=== PATIENT | female | born 2000 | race American Indian/Alaskan Native ===

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

== ENCOUNTER 2018-01-10 10:26 | Inpatient (IN) | payer MEDICAID, OTHER ==
[2018-01-10] MEDS ORDERED: ePHEDrine SULFATE IV PRN (11:40)
[2018-01-10] MEDS ORDERED: XYLOCAINE 2% INFILTRATI ONE (11:40)
[2018-01-10] MEDS ORDERED: BRETHINE SUB-Q PRN (11:40)
[2018-01-10] MEDS ORDERED: SUBLIMAZE IV PRN (11:40)
[2018-01-10] MEDS ORDERED: POLYCILLIN/NS 2 GM/100 ML 2 GM/100 ML BAG IV ONE (11:40)
--- NOTE | 2018-01-10 11:48 | History and Physical Report ---
History of Present Illness Date of examination: 01/10/18 (Walk-in Active labor No PNC) Date of admission: 01/10/18 11:24 Chief complaint: labor pains and vaginal bleeding that started this morning History of present illness: @ 37 weeks by pt's EDC 01-31-18 given to her @ the [facility] office Pt has not had any care with this Pt denies any smoking, drinking, drug use Pt did have PP PreE in 2016 ( she was a pt of [facility] with that ) Past History - Obstetrical History Expected Date of Delivery: 01/31/18 (pt was given EDC by [facility] nurse) Actual Gestation: 37 Week(s) 0 Day(s) : 2 Para: 1 Number of Living Children: 1 Medications and Allergies Allergies Allergy/AdvReac Type Severity Reaction Status Date / Time No Known Allergies Allergy Verified 03/08/16 06:52 Home Medications Medication Instructions Recorded Confirmed Last Taken Type Pnv,Calcium 72/Iron/Folic Acid 1 tab PO DAILY 06/03/16 06/06/16 2 Days Ago History [Pnv Plus Multivit Tab] ~06/01/16 1 tab Active Meds: Active Medications Ephedrine Sulfate (Ephedrine Sulfate) 10 mg IV Q2M PRN PRN Reason: Hypotension Fentanyl (Sublimaze) 100 mcg IV Q2H PRN PRN Reason: Labor Pain Ampicillin Sodium (Ampicillin/Ns 1 Gm/50 Ml) 1 gm in 50 mls @ 100 mls/hr IV Q4HR JOSÉ ANTONIO; Protocol Ampicillin Sodium (Polycillin/Ns 2 Gm/100 Ml) 2 gm in 100 mls @ 100 mls/hr IV ONCE ONE; Protocol Stop: 01/10/18 12:39 - Vital Signs Vital signs: Vital Signs Pulse BP 75 129/81 01/10/18 10:57 01/10/18 10:57 Temp Pulse Resp BP Pulse Ox 75 129/81 01/10/18 10:57 01/10/18 10:57 - Physical Exam Breasts: Positive: deferred Cardiovascular: Regular rate, Normal S1, Normal S2 Abdomen: Positive: normal appearance, soft, normal bowel sounds. Negative: distention, tenderness Genitourinary (Female): Positive: normal external genitalia Vulva: both: normal Vagina: Positive: normal moisture. Negative: discharge Cervix: Negative: lesion, discharge Uterus: Positive: normal size, normal contour Adnexa: both: normal Anus/Rectum: Positive: normal perianal skin, heme negative. Negative: rectal mass, hemorrhoids Extremities: Positive: normal Deep Tendon Reflex Grade: Normal +2 - Obstetrical Uterine Contraction Monitor Mode: External Cervical Dilatation: 7.5 Cervical Effacement Percentage: 90 (BBOW) station: -2 Uterine Contraction Pattern: Regular Uterine Tone Measurement Phase: Resting Uterine Contraction Intensity: Moderate Results All other labs normal. Assessment and Plan - Patient Problems (1) Insufficient care in third trimester Onset Date: ~01/10/18 Current Visit: Yes Status: Acute Plan to address problem: 17yo @ 37 weeks by her dates. labs ordered. aware of pt 's admission. Ampicillin ordered for unknown GBS. Anticipate delivery.
[2018-01-10] MEDS ORDERED: LACTATED RINGERS 1,000 ML IV SCH (12:00)
[2018-01-10] MEDS ORDERED: PITOCin/NS 20 UNIT/1000ML DRIP 20 UNITS/1,000 ML BAG IV SCH (12:00)
[2018-01-10 12:31] LABS: Basophils % (Auto) 0.3 % (0.0-1.8); Eosinophils % (Auto) 0.3 % (0.0-4.3); Hematocrit 24.5 % (30.3-42.9); Hemoglobin 7.9 gm/dl (10.1-14.3); Lymphocytes # (Auto) 1.5 K/mm3 (1.2-5.4); Lymphocytes % (Auto) 18.1 % (13.4-35.0); Mean Corpuscular HGB Conc 32 % (30-34); Monocytes # (Auto) 0.5 K/mm3 (0.0-0.8); Monocytes % (Auto) 6.3 % (0.0-7.3); Platelet Count 260 K/mm3 (140-440); Red Blood Count 3.67 M/mm3 (3.65-5.03); Red Cell Distribution Width 19.5 % (13.2-15.2)
[2018-01-10 12:32] LABS: Bilirubin,Urine NEG (Negative); Blood,Urine NEG (Negative); Color,Urine Yellow (Yellow); Mucus,Urine 3+ /HPF
[2018-01-10 12:34] LABS: Mean Corpuscular Hemoglobin 22 pg (28-32); Mean Corpuscular Volume 67 fl (79-97)
[2018-01-10 12:38] LABS: Amphetamine Screen,Urine PRESUMPTIVE NEGATIVE; Benzodiazepines Screen,Urine PRESUMPTIVE NEGATIVE; Cocaine Screen,Urine PRESUMPTIVE NEGATIVE; Methadone Screen,Urine PRESUMPTIVE NEGATIVE; Opiate Screen,Urine PRESUMPTIVE NEGATIVE
[2018-01-10 12:50] LABS: Cannabinoid Screen,Urine PRESUMPTIVE POSITIVE
[2018-01-10] MEDS ORDERED: LANSINOH TP PRN (13:03)
[2018-01-10] MEDS ORDERED: TUCKS PAD TP PRN (13:03)
[2018-01-10] MEDS ORDERED: TYLENOL PO PRN (13:03)
[2018-01-10] MEDS ORDERED: MILK OF MAGNESIA PO PRN (13:03)
[2018-01-10] MEDS ORDERED: PHENERGAN PO PRN (13:03)
[2018-01-10] MEDS ORDERED: ZOFRAN IV PRN (13:03)
[2018-01-10] MEDS ORDERED: BENADRYL PO PRN (13:03)
--- NOTE | 2018-01-10 13:17 | Procedure Note ---
OB Delivery Note - Delivery Date of Delivery: 01/10/18 Jacquard Loom Carpet Weaver: BETO THIBODEAUX Estimated blood loss: 300cc - Vaginal Delivery presentation: vertex Delivery position: OA Intrapartum events: no care Delivery induction: none Delivery augmentation: rupture of membranes Delivery monitor: external FHT, external uterine Route of delivery: Delivery placenta: spontaneous Delivery cord: nuchal cord, 3 umbilical vessels Episiotomy: none Delivery laceration: none Anesthesia: intravenous Delivery comments: NICU RT present for delivery No care live born male CAN X 1 delivered through Baby passed to NICU team for assessment. Cord blood obt. Blood type unknown @ time of delivery. Placenta and membrane del complete and intact, 3 vessel cord. To pathology. Pit IVFs. 8 /9, EBL 300, Wgt 5-13. Mom and baby remain LDR stable. PIH labs ordered PP due to elevated BPs noted. Urine 30 of protein - Infant A at 1 minute: 8 at 5 minutes: 9 Infant Gender: Male (wgt 5-13)
[2018-01-10] MEDS: MOTRIN PO SCH ×2 (13:49→21:53)
[2018-01-10] MEDS ORDERED: SODIUM CHLORIDE FLUSH SYRINGE 10 ML IV SCH (14:00)
[2018-01-10] MEDS ORDERED: DULCOLAX PR PRN (14:00)
[2018-01-10 14:19] LABS: Hepatitis C Virus Antibody Non-Reactive (NonReactive)
[2018-01-10 14:46] LABS: Alanine Aminotransferase 6 units/L (7-56); Uric Acid 2.4 mg/dL (3.5-7.6)
[2018-01-10 14:49] LABS: Rubella IgG Antibody Immune (Immune)
[2018-01-10] MEDS ORDERED: AMPICILLIN/NS 1 GM/50 ML 1 GM/50 ML BAG IV SCH (15:42)
[2018-01-10] MEDS: FEOSOL PO SCH (21:53)
[2018-01-10] MEDS: COLACE PO SCH (21:56)
[2018-01-11 00:43] LABS: Hematocrit 21.1 % (30.3-42.9); Hemoglobin 6.5 gm/dl (10.1-14.3)
[2018-01-11] MEDS: MOTRIN PO SCH ×3 (05:59→18:02)
[2018-01-11] MEDS ORDERED: BOOSTRIX IM ONE (06:00)
--- NOTE | 2018-01-11 08:04 | Progress Note ---
Assessment and Plan A; 17y/o day #1 s/p , no care, + THC use. GBS unknown. Intact perineum, lochia scant, fundus firm. H&H 6.5/21.1 (starting H&H 7.9/24.5 upon admission), no s/s anemia. VSSAF, bottle feeding. P: Continue pathway, FE supplementation, anticipate d/c home tomorrow if stable. - Patient Problems (1) Spontaneous vaginal delivery Current Visit: Yes Status: Acute Subjective - Subjective Date of service: 01/11/18 Principal diagnosis: day #1 s/p , no care, existing anemia Patient reports: appetite normal, voiding normally, pain well controlled, ambulating normally, no dizzy ambulation, no nauseated [place]: doing well, bottle feeding Objective - Vital Signs Latest vital signs: Vital Signs Temp Pulse Resp BP BP Pulse Ox 01/11/18 05:59 18 01/11/18 00:30 98.4 F 76 20 111/55 96 01/10/18 21:53 18 01/10/18 20:45 98.7 F 79 18 114/58 97 01/10/18 14:30 98 F 82 20 115/58 98 01/10/18 14:02 90 134/69 01/10/18 13:47 85 141/79 01/10/18 13:32 95 H 140/90 01/10/18 13:17 109 H 142/84 01/10/18 13:02 106 H 150/93 01/10/18 12:47 93 H 144/96 01/10/18 12:34 78 135/87 01/10/18 12:17 77 124/79 01/10/18 12:02 88 128/75 01/10/18 10:57 75 129/81 Intake and Output 01/10/18 01/11/18 01/11/18 23:59 07:59 15:59 Intake Total 240 240 Output Total 1400 Balance -1160 240 Intake: Oral 240 240 Output: Urine 1400 Void 1400 Other: Total, Intake Amount 240 240 Total, Output Amount 400 # Voids Void 1 - Exam Breasts: Present: normal Cardiovascular: Present: Regular rate Lungs: Present: Clear to auscultation, Normal air movement Abdomen: Present: normal appearance, soft Vulva: both: normal Uterus: Present: normal, firm, fundal height at umbilicus Extremities: Present: normal - Labs Labs: Abnormal lab results 01/10/18 01/10/18 01/11/18 Range/Units 11:50 14:06 00:18 Hgb 7.9 L 6.5 L (10.1-14.3) gm/dl Hct 24.5 L 21.1 L (30.3-42.9) % MCV 67 L (79-97) fl MCH 22 L (28-32) pg RDW 19.5 H (13.2-15.2) % Seg Neutrophils % 75.0 H (40.0-70.0) % Creatinine 0.3 L (0.7-1.2) mg/dL Uric Acid 2.4 L (3.5-7.6) mg/dL ALT 6 L (7-56) units/L
--- NOTE | 2018-01-11 08:06 | Ultrasound Report ---
History: No care. Findings: Gestation: Single Position: Cephalic Heart Rate: 138 BPM BPD: 7.9 cm = 31 w 6 d HC: 29.6 cm = 32 w 5 d AC: 32 cm = 35 w 6 d FL: 7.1 cm = 36 w 2 d HC/AC Ratio: 0.9 Cephalic Index: 79.7 Estimated Weight: 2621 grams US Gest. Age = 34 w one d EDC: 02/20/18
[2018-01-11] MEDS: PRENATAL VITAMIN PO SCH (12:16)
[2018-01-11] MEDS: FEOSOL PO SCH ×2 (12:16→21:53)
[2018-01-11] MEDS ORDERED: M-M-R II VACCINE SUB-Q ONE (13:03)
[2018-01-11] MEDS: COLACE PO SCH (21:53)
[2018-01-12] MEDS: MOTRIN PO SCH ×3 (00:15→13:05)
--- NOTE | 2018-01-12 08:52 | Discharge Summary ---
Providers - Providers Date of Admission: 01/10/18 11:24 Date of discharge: 01/12/18 Attending physician: EDITH GALVEZ 01/10/18 Consult to Case Management [CONS] Routine Services Needed at Discharge: Service Superintendent Notified:: piper Phone number called:: [phone] Was contact made?: Yes If yes, spoke with:: piper Time called:: 15:01 Primary care physician: STORE WORKER Hospitalization Delivery: Episiotomy: none Laceration: none Other procedures: none complications: other (anemia patient declined transfusion) Discharge diagnosis: IUP at term delivered baby: male Hospital course: Please see dictated H&P for details. Patient with no care presented to labor and delivery in active labor and delivered a male . course was complicated by anemia with a hematocrit falling to 21.1% the patient was asymptomatic she was offered today blood transfusion but declined. Patient was instructed to call if she has any heavy bleeding due to a low reserve. Anemia precautions and orthostatic precautions were given. Patient hospital course was also noted that she was positive for cannabis. Patient is bottle feeding. Condition at discharge: Fair Disposition: DC-01 TO HOME OR SELFCARE - Discharge Diagnoses (1) Insufficient care in third trimester Status: Acute (2) Marijuana use Status: Acute (3) No care in current Status: Resolved Qualifiers: Trimester: third trimester Qualified Code(s): O09.33 - Supervision of with insufficient care, third trimester (4) Spontaneous vaginal delivery Status: Acute Plan - Discharge Medications Prescriptions: Ferrous Sulfate [Feosol 325 MG tab] 325 mg PO TID #90 tablet Ibuprofen [Motrin 800 MG tab] 800 mg PO Q6H PRN #30 tablet PRN Reason: Pain - Provider Discharge Summary Activity: routine, no sex for 6 weeks Diet: routine Instructions: routine Additional instructions: [] Smoking cessation referral if applicable(refer to patient education folder for contact #) [] Refer to [facility] Booklet Call your doctor immediately for: * Fever > 100.5 * Heavy vaginal bleeding ( >1 pad per hour) * Severe persistent headache * Shortness of breath * Reddened, hot, painful area to leg or breast * Patient given information about office follow-up in 1-2 weeks for anemia and also to call to schedule an appointment for her son's circumcision. - Follow up plan Follow up: PRIMARY CARE, [Primary Care Provider] - 7 Days
[2018-01-12 09:11] VITALS: BP 122/72
[2018-01-12] MEDS: PRENATAL VITAMIN PO SCH (10:55)
[2018-01-12] MEDS: COLACE PO SCH (10:55)
[2018-01-12] MEDS: FEOSOL PO SCH (10:55)
== END 2018-01-12 14:57 | disposition home or self-care (01) | DRG 775 ==
LOC: TRG 10:26 → LD 11:24 → OB 14:40
PROVIDERS: ADMIT Obstetrics & Gynecology; ATTEND Obstetrics & Gynecology
PROC: 10E0XZZ Delivery of Products of Conception, External Approach (ICD-10-PCS; principal; 2018-01-10)
PROC: 3E0234Z Introduction of Serum, Toxoid and Vaccine into Muscle, Percutaneous Approach (ICD-10-PCS; 2018-01-11)
DX: O69.81X0 Labor and delivery complicated by cord around neck, without compression, not applicable or unspecified (principal); O99.324 Drug use complicating childbirth; O90.81 Anemia of the puerperium; D64.9 Anemia, unspecified; F12.90 Cannabis use, unspecified, uncomplicated; O09.33 Supervision of pregnancy with insufficient antenatal care, third trimester; Z3A.37 37 weeks gestation of pregnancy; Z37.0 Single live birth; Z79.899 Other long term (current) drug therapy; Z23 Encounter for immunization
CPT/HCPCS: 36415; 76816; 80307; 81001; 82565; 83615; 84450; 84460; 84550; 85014; 85018; 85025; 86592; 86706; 86762; 86803; 86850; 86900; 86901; 87806; 88307; 90471; 90715; J0290; J2590; J3010; J7120

== ENCOUNTER 2019-02-27 22:22 | Inpatient (IN) | payer MEDICAID ==
--- NOTE | 2019-02-28 00:04 | History and Physical Report ---
History of Present Illness Date of examination: 02/27/19 Date of admission: 02/27/19 22:22 Chief complaint: I'm in labor History of present illness: Pt is a 18 year old who presents with unknown dates secondary to no care. This is the patient's second in which she did not receive care, stating that the last time, everything turned out "ok". Pt presented and delivered precipitously within minutes of arrival. Past History Past Medical History: no pertinent history Past Surgical History: no surgical history Social history: single - Obstetrical History : 3 Para: 2 Medications and Allergies Allergies Allergy/AdvReac Type Severity Reaction Status Date / Time No Known Allergies Allergy Verified 03/08/16 06:52 Home Medications Medication Instructions Recorded Confirmed Last Taken Type Pnv,Calcium 72/Iron/Folic Acid 1 tab PO DAILY 06/03/16 01/10/18 01/09/18 20:00 History [Pnv Plus Multivit Tab] 1 TAB Ferrous Sulfate [Feosol 325 MG tab] 325 mg PO TID #90 tablet 01/12/18 Unknown Rx Ibuprofen [Motrin 800 MG tab] 800 mg PO Q6H PRN #30 tablet 01/12/18 Unknown Rx Review of Systems All systems: negative Genitourinary: leakage of fluid, contractions - Vital Signs Vital signs: Vital Signs Temp Resp 98.2 F 18 02/27/19 23:03 02/27/19 23:03 Temp Pulse Resp BP Pulse Ox 98.2 F 102 H 18 117/77 02/27/19 23:03 02/27/19 23:34 02/27/19 23:03 02/27/19 23:34 - Physical Exam Breasts: Cardiovascular: Regular rate, Normal S1, Normal S2 Lungs: Positive: Clear to auscultation, Normal air movement Abdomen: Positive: normal appearance, soft, normal bowel sounds. Negative: distention, tenderness Vulva: both: normal Vagina: Positive: normal moisture. Negative: discharge Cervix: Negative: lesion, discharge Uterus: Positive: normal size, normal contour Adnexa: both: normal Anus/Rectum: Positive: normal perianal skin, heme negative. Negative: rectal mass, hemorrhoids Extremities: Deep Tendon Reflex Grade: Normal +2 - Obstetrical Cervical Dilatation: 10 Cervical Effacement Percentage: 100 Uterine Contraction Pattern: Regular Results All other labs normal. Assessment and Plan IUP at term with no care. Admit for labor recovery and post management. Will draw all panels.
--- NOTE | 2019-02-28 00:10 | Procedure Note ---
OB Delivery Note - Delivery Date of Delivery: 02/28/19 Surgeon: ANJEL STERN Estimated blood loss: 200cc - Vaginal Delivery presentation: vertex Delivery position: OA Intrapartum events: none Delivery induction: none Delivery monitor: external FHT, external uterine Route of delivery: Delivery placenta: spontaneous Delivery cord: 3 umbilical vessels Episiotomy: none Delivery laceration: none Anesthesia: none Delivery comments: Viable male delivered over intact perineum with no nuchal cord, weight 5 pounds 5 ounces. apgars 8,9. Placenta delivered spontaneously and intact with 3vc. No lacerations. Pt tolerated procedure well. - Infant A at 1 minute: 8 at 5 minutes: 9 Infant Gender: Male
[2019-02-28] MEDS ORDERED: NORCO 5/325 PO PRN ×2 (00:15→01:05)
[2019-02-28] MEDS ORDERED: PITOCin/NS 20 UNIT/1000ML DRIP 20 UNITS/1,000 ML BAG IV SCH ×2 (01:00→01:05)
[2019-02-28 01:03] LABS: Hepatitis C Virus Antibody Non-Reactive (NonReactive)
[2019-02-28 01:05] LABS: Basophils % (Auto) 0.4 % (0.0-1.8); Eosinophils % (Auto) 0.3 % (0.0-4.3); Hematocrit 29.8 % (30.3-42.9); Hemoglobin 9.7 gm/dl (10.1-14.3); Lymphocytes # (Auto) 2.3 K/mm3 (1.2-5.4); Lymphocytes % (Auto) 22.8 % (13.4-35.0); Mean Corpuscular HGB Conc 33 % (30-34); Mean Corpuscular Volume 77 fl (79-97); Monocytes # (Auto) 0.6 K/mm3 (0.0-0.8); Monocytes % (Auto) 5.9 % (0.0-7.3); Platelet Count 273 K/mm3 (140-440); Red Blood Count 3.86 M/mm3 (3.65-5.03); Red Cell Distribution Width 18.5 % (13.2-15.2)
[2019-02-28] MEDS ORDERED: LANSINOH TP PRN (01:05)
[2019-02-28] MEDS ORDERED: PHENERGAN PO PRN (01:05)
[2019-02-28] MEDS ORDERED: ZOFRAN IV PRN (01:05)
[2019-02-28] MEDS ORDERED: PHENERGAN PR PRN (01:05)
[2019-02-28] MEDS ORDERED: MILK OF MAGNESIA PO PRN (01:05)
[2019-02-28] MEDS ORDERED: SODIUM CHLORIDE FLUSH SYRINGE 10 ML IV PRN (01:05)
[2019-02-28] MEDS ORDERED: TYLENOL PO PRN (01:05)
[2019-02-28] MEDS ORDERED: DULCOLAX PR PRN (01:05)
[2019-02-28] MEDS ORDERED: TUCKS PAD TP PRN (01:05)
[2019-02-28] MEDS ORDERED: BENADRYL PO PRN (01:05)
[2019-02-28] MEDS: IBUPROFEN PO SCH ×4 (01:38→23:17)
[2019-02-28] MEDS ORDERED: IBUPROFEN PO SCH (06:00)
[2019-02-28 08:43] LABS: Hematocrit 26.2 % (30.3-42.9); Hemoglobin 8.7 gm/dl (10.1-14.3)
--- NOTE | 2019-02-28 08:46 | Progress Note ---
Assessment and Plan - Patient Problems (1) Insufficient care in third trimester Onset Date: ~01/10/18 Current Visit: No Status: Acute Plan to address problem: patient doing well awaiting 48 observation for unknown GBS (2) Single live Onset Date: 06/02/16 Current Visit: No Status: Acute Subjective - Subjective Date of service: 02/28/19 Interval history: Patient s/p . No care. Patient without complaints. GBS status unknown Patient reports: appetite normal, voiding normally, pain well controlled : doing well Objective - Vital Signs Latest vital signs: Vital Signs Temp Pulse Resp BP BP Pulse Ox 02/28/19 04:38 98.2 F 94 H 20 114/71 100 02/28/19 01:10 98.2 F 107 H 18 128/76 98 02/28/19 00:19 104 H 139/89 02/28/19 00:05 104 H 134/62 02/27/19 23:34 102 H 117/77 02/27/19 23:03 98.2 F 18 Intake and Output 02/27/19 02/28/19 02/28/19 22:59 06:59 14:59 Intake Total 360 Output Total 250 Balance 110 Intake: Oral 360 Output: Urine 250 Void 250 Other: Total, Intake Amount 360 Total, Output Amount 250 Weight 90.718 kg Estimated Blood Loss 200 - Exam Uterus: Present: normal, firm - Labs Labs: Abnormal lab results 02/27/19 Range/Units 22:36 Hgb 9.7 L (10.1-14.3) gm/dl Hct 29.8 L (30.3-42.9) % MCV 77 L (79-97) fl MCH 25 L (28-32) pg RDW 18.5 H (13.2-15.2) % Seg Neutrophils % 70.6 H (40.0-70.0) %
[2019-02-28] MEDS: PRENATAL VITAMIN PO SCH (10:01)
[2019-02-28] MEDS: COLACE PO SCH ×2 (10:01→23:17)
[2019-02-28 23:45] LABS: Amphetamine Screen,Urine PRESUMPTIVE NEGATIVE; Benzodiazepines Screen,Urine PRESUMPTIVE NEGATIVE; Cocaine Screen,Urine PRESUMPTIVE NEGATIVE; Methadone Screen,Urine PRESUMPTIVE NEGATIVE; Opiate Screen,Urine PRESUMPTIVE NEGATIVE
[2019-02-28 23:58] LABS: Bilirubin,Urine NEG (Negative); Blood,Urine MOD (Negative); Color,Urine Yellow (Yellow); Mucus,Urine 1+ /HPF; Protein,Urine <15 mg/dL mg/dL (Negative); Urobilinogen,Urine < 2.0 mg/dL (<2.0)
[2019-03-01 02:45] LABS: Cannabinoid Screen,Urine PRESUMPTIVE POSITIVE
[2019-03-01] MEDS: IBUPROFEN PO SCH ×3 (05:38→17:53)
[2019-03-01] MEDS: COLACE PO SCH (09:49)
[2019-03-01] MEDS: PRENATAL VITAMIN PO SCH (09:49)
--- NOTE | 2019-03-01 11:49 | Progress Note ---
Assessment and Plan - Patient Problems (1) Insufficient care in third trimester Onset Date: ~01/10/18 Current Visit: No Status: Acute Plan to address problem: patient doing well discharge home (2) Single live Onset Date: 06/02/16 Current Visit: No Status: Acute Subjective - Subjective Date of service: 03/01/19 Interval history: Patient without complaints. Infant scheduled to be discharged tomorrow Patient reports: appetite normal, voiding normally, pain well controlled [place]: doing well Objective - Vital Signs Latest vital signs: Vital Signs Temp Pulse Resp BP BP Pulse Ox 03/01/19 07:29 98.1 F 98 H 18 112/66 03/01/19 00:19 98.6 F 99 H 16 111/71 99 02/28/19 19:26 98.5 F 102 H 18 123/72 98 02/28/19 16:42 98.7 F 101 H 20 110/75 96 02/28/19 12:12 98.4 F 18 110/69 Intake and Output 02/28/19 03/01/19 03/01/19 22:59 06:59 14:59 Intake Total 480 480 Balance 480 480 Intake: Oral 480 480 Other: Total, Intake Amount 480 480 # Voids Void 9 - Exam Uterus: Present: normal, firm
--- NOTE | 2019-03-01 11:50 | Discharge Summary ---
Providers - Providers Date of Admission: 02/27/19 22:22 Date of discharge: 03/01/19 Attending physician: ANJEL STERN 03/01/19 02:59 Consult to Case Management [CONS] Routine Services Needed at Discharge: Other Notified:: Ext [phone] Was contact made?: No Additional Physician Instructions: Positive drug screen. Primary care physician: ANJEL STERN Hospitalization Reason for admission: active labor Delivery: Discharge diagnosis: IUP at term delivered [place] baby: female Hospital course: Patient presents in active labor. NO care. Had . uncomplicated Condition at discharge: Good Disposition: DC-01 TO HOME OR SELFCARE - Discharge Diagnoses (1) Insufficient care in third trimester Status: Acute (2) Single live Status: Acute Plan - Provider Discharge Summary Activity: no sex for 6 weeks, no heavy lifting 4 weeks, no strenuous exercise Diet: routine Instructions: routine Additional instructions: [] Smoking cessation referral if applicable(refer to patient education folder for contact #) [] Refer to [facility] Booklet Call your doctor immediately for: * Fever > 100.5 * Heavy vaginal bleeding ( >1 pad per hour) * Severe persistent headache * Shortness of breath * Reddened, hot, painful area to leg or breast * schedule visit in 4 weeks - Follow up plan
[2019-03-01 17:10] VITALS: BP 116/75
== END 2019-03-01 18:49 | disposition home or self-care (01) | DRG 775 ==
LOC: LD 22:22 → OB 02-28 00:57
PROVIDERS: ADMIT Obstetrics & Gynecology; ATTEND Obstetrics & Gynecology
PROC: 10E0XZZ Delivery of Products of Conception, External Approach (ICD-10-PCS; principal; 2019-02-28)
DX: O80 Encounter for full-term uncomplicated delivery (principal); Z37.0 Single live birth; Z3A.41 41 weeks gestation of pregnancy
CPT/HCPCS: 36415; 80307; 81001; 85014; 85018; 85025; 85660; 86592; 86706; 86762; 86803; 86850; 86900; 86901; 87806; G0378; J2590

== ENCOUNTER 2019-03-19 09:26 | Emergency (ER) | payer MEDICAID ==
[2019-03-19 09:32] VITALS: BP 119/80
[2019-03-19 10:52] LABS: Basophils # (Auto) 0.1 K/mm3 (0.0-0.1); Basophils % (Auto) 0.6 % (0.0-1.8); Eosinophils % (Auto) 0.2 % (0.0-4.3); Hemoglobin 10.2 gm/dl (10.1-14.3); Lymphocytes # (Auto) 2.1 K/mm3 (1.2-5.4); Lymphocytes % (Auto) 17.1 % (13.4-35.0); Mean Corpuscular HGB Conc 33 % (30-34); Mean Corpuscular Volume 76 fl (79-97); Monocytes # (Auto) 0.9 K/mm3 (0.0-0.8); Monocytes % (Auto) 7.2 % (0.0-7.3); Platelet Count 340 K/mm3 (140-440); Red Blood Count 4.07 M/mm3 (3.65-5.03); Red Cell Distribution Width 18.6 % (13.2-15.2)
[2019-03-19 11:07] LABS: Mucus,Urine 3+ /HPF
[2019-03-19 11:08] LABS: Bilirubin,Urine NEG (Negative); Blood,Urine MOD (Negative); Color,Urine Amber (Yellow)
--- NOTE | 2019-03-19 12:35 | Emergency Department Report ---
ED Female HPI - General Chief complaint: Vaginal Bleeding Stated complaint: CHEST/BACK PAIN Time Seen by Provider: 03/19/19 09:57 Source: patient Mode of arrival: Ambulatory Limitations: No Limitations - History of Present Illness Initial comments: 18-year-old -[place] female who recently had spontaneous, precipitous vaginal delivery about 2 weeks ago. Presents to ED with vaginal bleeding, mild dysuria, no fever or chills or night sweats. Patient has not taking any medication for symptoms. Patient has not been sexually active since her delivery. MD Complaint: vaginal bleeding -: Gradual - Related Data Home Medications Medication Instructions Recorded Confirmed Last Taken Pnv,Calcium 72/Iron/Folic Acid 1 tab PO DAILY 06/03/16 02/28/19 02/25/19 [Pnv Plus Multivit Tab] Previous Rx's Medication Instructions Recorded Last Taken Type Ferrous Sulfate [Feosol 325 MG tab] 325 mg PO TID #90 tablet 01/12/18 02/25/19 Rx Ibuprofen [Motrin 800 MG tab] 800 mg PO Q6H PRN #30 tablet 01/12/18 Unknown Rx HYDROcodone/APAP 5-325 [[place] 1 each PO Q6HR PRN #20 tablet 03/01/19 Unknown Rx 5/325] Ibuprofen [Motrin] 800 mg PO Q8HR PRN #60 tablet 03/01/19 Unknown Rx Ciprofloxacin HCl [Ciprofloxacin 500 mg PO Q12HR 7 Days #14 tab 03/19/19 Unknown Rx TAB] metroNIDAZOLE [Flagyl TAB] 500 mg PO Q8HR 7 Days #21 tablet 03/19/19 Unknown Rx Allergies Allergy/AdvReac Type Severity Reaction Status Date / Time No Known Allergies Allergy Verified 03/08/16 06:52 ED Review of Systems ROS: Stated complaint: CHEST/BACK PAIN Other details as noted in HPI Comment: All other systems reviewed and negative Respiratory: denies: cough Genitourinary: dysuria, other (vaginal bleeding) Musculoskeletal: denies: back pain ED Past Medical Hx - Past Medical History Hx Hypertension: No Hx CVA: No Hx Heart Attack/AMI: No Hx Congestive Heart Failure: No Hx Diabetes: No Hx Deep Vein Thrombosis: No Hx Pulmonary Embolism: No Hx GERD: No Hx Liver Disease: No Hx Renal Disease: No Hx Sickle Cell Disease: No Hx Arthritis: No Hx Headaches / Migraines: No Hx Seizures: No Hx Kidney Stones: No Hx Psychiatric Treatment: No Hx Asthma: No Hx COPD: No Hx Dementia: No Hx HIV: No - Surgical History Hx Coronary Stent: No Hx Open Heart Surgery: No Hx Pacemaker: No Hx Internal Defibrillator: No Hx Cholecystectomy: No Hx Appendectomy: No Hx Breast Surgery: No - Social History Smoking Status: Never Smoker Substance Use Type: None - Medications Home Medications: Home Medications Medication Instructions Recorded Confirmed Last Taken Type Pnv,Calcium 72/Iron/Folic Acid 1 tab PO DAILY 06/03/16 02/28/19 02/25/19 History [Pnv Plus Multivit Tab] Ferrous Sulfate [Feosol 325 MG tab] 325 mg PO TID #90 tablet 01/12/18 02/28/19 02/25/19 Rx Ibuprofen [Motrin 800 MG tab] 800 mg PO Q6H PRN #30 tablet 01/12/18 02/28/19 Unknown Rx HYDROcodone/APAP 5-325 [[place] 1 each PO Q6HR PRN #20 tablet 03/01/19 Unknown Rx 5/325] Ibuprofen [Motrin] 800 mg PO Q8HR PRN #60 tablet 03/01/19 Unknown Rx Ciprofloxacin HCl [Ciprofloxacin 500 mg PO Q12HR 7 Days #14 tab 03/19/19 Unknow n Rx TAB] metroNIDAZOLE [Flagyl TAB] 500 mg PO Q8HR 7 Days #21 tablet 03/19/19 Unknown Rx ED Physical Exam - General Limitations: No Limitations General appearance: alert, in no apparent distress - Head Head exam: Present: atraumatic, normocephalic - Eye Eye exam: Present: normal appearance, PERRL, EOMI Pupils: Present: normal accommodation - ENT ENT exam: Present: normal exam, normal orophraynx - Neck Neck exam: Present: normal inspection - Respiratory Respiratory exam: Present: normal lung sounds bilaterally - Cardiovascular Cardiovascular Exam: Present: regular rate, normal rhythm - GI/Abdominal GI/Abdominal exam: Present: soft ED Course Vital Signs 03/19/19 09:30 Temperature 98.2 F Pulse Rate 115 H Respiratory 19 Rate Blood Pressure 119/80 [Left] O2 Sat by Pulse 98 Oximetry ED Medical Decision Making - Lab Data Result diagrams: 03/19/19 10:13 Critical care attestation.: If time is entered above; I have spent that time in minutes in the direct care of this critically ill patient, excluding procedure time. ED Disposition Clinical Impression: UTI (urinary tract infection) Qualifiers: Urinary tract infection type: acute cystitis Hematuria presence: without hematuria Qualified Code(s): N30.00 - Acute cystitis without hematuria Vaginitis Qualifiers: Chronicity: acute Qualified Code(s): N76.0 - Acute vaginitis Disposition: TO HOME OR SELFCARE Is pt being admited?: No Does the pt Need Aspirin: No Condition: Stable Instructions: Vaginitis (ED) Prescriptions: Ciprofloxacin HCl [Ciprofloxacin TAB] 500 mg PO Q12HR 7 Days #14 tab metroNIDAZOLE [Flagyl TAB] 500 mg PO Q8HR 7 Days #21 tablet Referrals: ANJEL STERN MD [Staff Physician] - 3-5 Days [place] KELLY CHAVES MD [Primary Care Provider] - 3-5 Days
== END 2019-03-19 13:00 | disposition home or self-care (01) ==
LOC: ED 09:26
DX: N39.0 Urinary tract infection, site not specified (principal); N76.0 Acute vaginitis; Z79.899 Other long term (current) drug therapy
CPT/HCPCS: 36415; 81001; 85025; 87086; 99283